=== PATIENT | female | born 1980 | race African-American/Black ===

== ENCOUNTER 2017-02-17 01:23 | Emergency (ER) | payer MEDICARE, MEDICAID ==
[~2017-02-17] VITALS: Ht 175.3 cm; Wt 136.0 kg
[~2017-02-17 01:23] MED LIST: Prenatal vitamin
[2017-02-17 01:31] VITALS: BP 168/96
== END 2017-02-17 02:40 | disposition left against medical advice (07) ==
LOC: ER 01:29
DX: R45.851 Suicidal ideations (principal); Z53.21 Procedure and treatment not carried out due to patient leaving prior to being seen by health care provider